=== PATIENT | female | born 1955 | race Caucasian/White ===

== ENCOUNTER → 2017-06-27 | Outpatient (CLI) | payer MEDICARE, OTHER | LOC: M.ULTRA 06-22 07:30 → M.NUC 07:30 → M.ULTRA 07:30 | DX: K31.84 Gastroparesis (principal); R10.10 Upper abdominal pain, unspecified; R11.2 Nausea with vomiting, unspecified ==

== ENCOUNTER → 2018-08-20 | Outpatient (CLI) | payer OTHER | LOC: M.CT 11:30 | DX: Z13.6 Encounter for screening for cardiovascular disorders (principal); I25.10 Atherosclerotic heart disease of native coronary artery without angina pectoris ==

== ENCOUNTER → 2018-10-23 | Outpatient (CLI) | payer MEDICARE, OTHER | LOC: M.RAD 10:12 | DX: Z12.31 Encounter for screening mammogram for malignant neoplasm of breast (principal) ==